=== PATIENT | female | born 1985 | race Caucasian/White ===

== ENCOUNTER 2020-01-17 07:05 | Inpatient (IN) ==
[2020-01-17] MEDS ORDERED: Lactated Ringers 1000 ml BAG 1,000 ML IV ONE ×2 (07:39→10:42)
[2020-01-17] MEDS ORDERED: OBEPIDURAL 250 ML EPIDURAL ONE (07:54)
[2020-01-17 07:58] LABS: ABS Basophils 0.1 10^3/ul (0-0.2); ABS Eosinophils 0.4 10^3/ul (0-0.6); ABS Lymphocytes 3.1 10^3/ul (1.0-4.8); ABS Monocytes 1.3 10^3/ul (0-0.8); ABS Neutrophils 12.4 10^3/ul (1.5-7.7); Eosinophil % 2.2 %; Hematocrit 39 % (35-47); Hemoglobin 13.5 g/dL (12.0-16.0); Lymphocyte % 18.2 %; Mean Corpuscular HGB Conc 35 g/dL (31-36); Mean Corpuscular Hemoglobin 32 pg (27-31); Mean Corpuscular Volume 91 fL (80-97); Red Blood Count 4.27 10^6 /uL (3.70-4.87); Red Cell Distribution Width 14 % (10-15); White Blood Count 17.2 10^3/uL (3.5-10.8)
[2020-01-17] MEDS ORDERED: Lactated Ringers 1000 ml BAG 1,000 ML IV SCH ×2 (08:00→11:00)
[2020-01-17 08:25] LABS: Mean Platelet Volume 10.8 fL (7.4-10.4); Platelet Count 96 10^3/uL (150-450)
[2020-01-17 09:31] LABS: Albumin 3.4 g/dL (3.2-5.2); BUN/Creatinine Ratio 16.2 (8-20); Calcium 9.8 mg/dL (8.6-10.3); EGFR African American 118.5 (>60); EGFR Non-African American 97.9 (>60); Globulin 3.4 g/dL (2-4); Potassium 4.1 mmol/L (3.5-5.0); Total Bilirubin 0.3 mg/dL (0.2-1.0); Total Protein 6.8 g/dL (6.4-8.9); Uric Acid 3.8 mg/dL (2.3-6.6)
[2020-01-17] MEDS ORDERED: Phenylephrine 40 mcg/mL 10mL (400mcg) SYRINGE IV PUSH PRN (10:42)
[2020-01-17] MEDS ORDERED: OBEPIDURAL 250 ML EPIDURAL SCH (11:00)
[2020-01-17 12:00] LABS: Urine Appearance Cloudy; Urine Bilirubin Negative (Negative); Urine Blood 3+ (Negative); Urine Color Yellow; Urine Glucose Negative (Negative); Urine Ketones Trace (Negative); Urine Nitrite Negative (Negative); Urine Protein 2+(100 mg/dL) (Negative); Urine Specific Gravity 1.023 (1.010-1.030); Urine Urobilinogen Negative (Negative)
[2020-01-17 12:09] LABS: Urine Bacteria Absent (Absent); Urine Red Blood Cell 3+(>10/hpf) (Absent); Urine Squamous Epithelial Cell Present (Absent); Urine White Blood Cell Absent (Absent)
[2020-01-17 12:13] LABS: Urine Benzodiazepine Screen None Detected (None Detect); Urine Cannabinoids Screen None Detected (None Detect); Urine Opiates Screen None Detected (None Detect)
[2020-01-17] MEDS ORDERED: ceFOXitin 2 GM IVPREMIX 2 GM/50 ML BAG IVPB ONE (17:18)
[2020-01-17] MEDS ORDERED: ceFOXitin 2 GM IVPREMIX 2 GM/50 ML BAG ONE (17:18)
[2020-01-17] MEDS ORDERED: Oxytocin 10 UNITS/ML 1 ML VIAL ONE (17:30)
[2020-01-17] MEDS ORDERED: Morphine PF AMP (0.5MG/ML) 5 MG/10 ML AMP ONE (17:44)
[2020-01-17] MEDS ORDERED: Lidocaine 2% PF 10 ML AMP ONE ×2 (17:47→17:54)
[2020-01-17] MEDS ORDERED: fentaNYL 100 mcg/2 ml 50 MCG/ML VIAL IV PRN (18:02)
[2020-01-17] MEDS ORDERED: Ondansetron 4 mg VIAL 2 MG/ML 2 ml VIAL IV PRN (18:02)
[2020-01-17] MEDS ORDERED: Naloxone 0.4 mg VIAL 0.4 mg/ml 1 ml VIAL IV PRN (18:02)
[2020-01-17] MEDS ORDERED: Phenylephrine 40 mcg/mL 10mL (400mcg) SYRINGE ONE (18:10)
[2020-01-17] MEDS ORDERED: Acetaminophen IV 1 GM/100ML 100 ML ONE (18:12)
[2020-01-17] MEDS ORDERED: Witch Hazel PAD JAR TOPICAL PRN (18:58)
[2020-01-17] MEDS ORDERED: Dibucaine 1% OINT 28.35 GM TUBE PR PRN (18:58)
[2020-01-17] MEDS ORDERED: Glycerin ADULT 2.4 gm SUPP PR PRN (18:58)
[2020-01-18 08:14] LABS: ABS Eosinophils 0.1 10^3/ul (0-0.6); ABS Lymphocytes 2.2 10^3/ul (1.0-4.8); ABS Monocytes 1.1 10^3/ul (0-0.8); ABS Neutrophils 12.9 10^3/ul (1.5-7.7); Eosinophil % 0.3 %; Hematocrit 24 % (35-47); Hemoglobin 8.2 g/dL (12.0-16.0); Lymphocyte % 13.3 %; Mean Corpuscular HGB Conc 34 g/dL (31-36); Mean Corpuscular Hemoglobin 32 pg (27-31); Mean Corpuscular Volume 93 fL (80-97); Mean Platelet Volume 10.8 fL (7.4-10.4); Platelet Count 80 10^3/uL (150-450); Red Blood Count 2.58 10^6 /uL (3.70-4.87); Red Cell Distribution Width 15 % (10-15); White Blood Count 16.3 10^3/uL (3.5-10.8)
[2020-01-19 12:08] VITALS: BP 114/71
== END 2020-01-19 16:20 | disposition home or self-care (01) | DRG 540 ==
LOC: MCHOBOUT 07:05 → MCHOB 07:15
PROVIDERS: ADMIT Midwife; ATTEND Obstetrics & Gynecology